=== PATIENT | female | born 1950 | race Caucasian/White ===

== ENCOUNTER 2016-06-14 16:02 | Emergency (ER) | payer BC ==
[2016-06-14] MEDS ORDERED: HYDROcod/ACETAM 5/325 MG TABLET PO STA (18:11)
[2016-06-14] MEDS ORDERED: HYDROcod/ACETAM 5/325 MG TABLET ONE (18:13)
== END 2016-06-14 18:43 | disposition home or self-care (01) ==
DX: S82.044A Nondisplaced comminuted fracture of right patella, initial encounter for closed fracture (principal); S60.519A Abrasion of unspecified hand, initial encounter; W01.0XXA Fall on same level from slipping, tripping and stumbling without subsequent striking against object, initial encounter; Y92.007 Garden or yard of unspecified non-institutional (private) residence as the place of occurrence of the external cause
CPT/HCPCS: 73564; 99283; A9270

== ENCOUNTER 2016-07-09 15:01 | Outpatient (CLI) | payer BC | END 2016-07-09 15:02 | disposition home or self-care (01) | DX: S82.041D Displaced comminuted fracture of right patella, subsequent encounter for closed fracture with routine healing (principal) ==

== ENCOUNTER 2017-11-25 14:40 | Outpatient (CLI) | payer MEDICARE, OTHER ==
--- NOTE | 2017-11-27 14:24 | DEXA Report ---
Reason: OSTEOPORSIS Procedure Date: 11/25/2017 Accession Number: [id number] / [id number] Procedure: DEX - Dexa Spine and/or Hip CPT Code: FULL RESULT: EXAM: Dexa Spine and/or Hip DATE: 11/25/2017 3:20 PM CLINICAL HISTORY: OSTEOPORSIS TECHNIQUE: Dual energy x-ray absorptiometry (DXA) was performed on a [employer] System. Regions measured are the AP Spine, femoral neck, and if needed forearm. COMPARISON: None. In accordance with the International Society for Clinical Densitometry (ISCD) guidelines, data from previous exams may be reanalyzed using current recommendations and techniques. This is done to allow a more accurate basis for comparison with the current study. FINDINGS: The data for the lumbar spine is as follows: BMD (g/cm/cm) T-SCORE Z-SCORE REGION L1 0.649 -4.0 -2.6 L2 0.973 -1.9 -0.5 L3 0.962 -2.0 -0.6 L4 0.809 -3.3 -1.8 TOTAL 0.851 -2.7 -1.3 NOTE: All evaluable vertebrae are used for classification The data for the hip is as follows: BMD (g/cm/cm) T-SCORE Z-SCORE REGION Neck 0.613 -3.1 -1.7 TOTAL 0.564 -3.5 -2.4 IMPRESSION: THE WHO CLASSIFICATION BASED ON THE INTERNATIONAL REFERENCE STANDARD IS OSTEOPOROSIS. THE FRACTURE RISK IS HIGH. RECOMMENDATION: Patients with diagnosis of osteoporosis or osteopenia should have regular bone mineral density assessment. For those eligible for Medicare, routine testing is allowed once every 2 years. Testing frequency can be increased for patients who have rapidly progressing disease or for those who are receiving medical therapy to restore bone mass. COMMENT: World Health Organization (WHO) definitions for osteoporosis and osteopenia: NORMAL BMD: T-score at -1.0 or higher, fracture risk is low OSTEOPENIA BMD: T-score between -1.0 and -2.5, fracture risk is increased. OSTEOPOROSIS BMD: T-score at -2.5 or lower, fracture risk is high. National Osteoporosis Foundation recommends: 1. Obtain adequate dietary calcium (at least 1200 mg per day) and vitamin D (400-800 international units per day). 2. Participate, as appropriate, in regular weightbearing and muscle-strengthening exercise. 3. Avoid tobacco use and reduce alcohol and caffeine intake. 4. For more detailed information see the website at www.NOF.org.
== END 2017-11-25 14:41 | disposition home or self-care (01) ==
LOC: DI 14:40
PROVIDERS: ATTEND Family Medicine
DX: M81.0 Age-related osteoporosis without current pathological fracture (principal)
CPT/HCPCS: 77080

== ENCOUNTER 2021-12-25 10:44 | Outpatient (CLI) | payer MEDICARE, OTHER ==
--- NOTE | 2021-12-25 11:12 | DEXA Report ---
PROCEDURE: Dexa Spine and/or Hip INDICATIONS: OSTEOPOROSIS TECHNIQUE: Dual energy x-ray absorptiometry (DXA) was performed on a [employer] System. Regions measur ed are the AP Spine, femoral neck, and if needed forearm. COMPARISON: 11/25/2017. FINDINGS: Lumbar Spine: Bone Mineral Density 0.845 g/cm/cm, T score -2.8, osteoporosis. There is significant interval increa se in bone mineral density. Left Hip: Bone Mineral Density 0.573 g/cm/cm, T score -3.5, osteoporosis, significant interval decrease in bon e mineral density. Left Femoral Neck: Bone Mineral Density 0.623 g/cm/cm, T score -3.0, osteoporosis. (T score greater or equal to -1.0: NORMAL) (T score from -1.1 to -2.4: OSTEOPENIA) (T score less than or equal to -2.5 to: OSTEOPOROSIS) Impression: Osteoporosis. There is significant interval decrease in bone mineral density at the left hip. There is significant interval increase in bone mineral density at the lumbar spine. Patients with diagnosis of osteoporosis or osteopenia should have regular bone mineral density assess ment. For those eligible for Medicare, routine testing is allowed once every 2 years. Testing frequ ency can be increased for patients who have rapidly progressing disease or for those who are receivin g medical therapy to restore bone mass. Reviewed by: Juventino Landry MD on 12/25/2021 10:11 AM [facility]ARD Approved by: Juventino Landry MD on 12/25/2021 10:11 AM HOWARD Station ID: [id number]
== END 2021-12-25 10:45 | disposition home or self-care (01) ==
LOC: DI 10:44
PROVIDERS: ATTEND Family Medicine
DX: M81.0 Age-related osteoporosis without current pathological fracture (principal); Z78.0 Asymptomatic menopausal state

== ENCOUNTER 2022-05-27 14:10 | Outpatient (CLI) | payer MEDICARE ==
--- NOTE | 2022-05-28 15:15 | Mammography Report ---
BILATERAL DIGITAL SCREENING MAMMOGRAM 3D/2D WITH EXAGGERATED CC: 05/27/2022 CLINICAL: Routine screening. Family history of breast cancer. Comparison is made to exams dated: 10/18/2013 mammogram, 08/26/2012 mammogram, and 08/06/2011 mammogram - [facility]. There are scattered areas of fibroglandular density in both breasts (category b / 25%-50% glandular t issue). No significant masses, calcifications, or other findings are seen in either breast. There has been no significant interval change. IMPRESSION: NEGATIVE There is no mammographic evidence of malignancy. A 1 year screening mammogram is recommended. Based on the Tyrer Cuzick model (a risk assessment model) the patients lifetime risk is 5.5% and her 10 year risk is 3.5%. According to the ACR, ACS, and NCCN guidelines, an annual breast MRI exam liz g with mammogram is recommended if the patients lifetime risk is 20% or greater. This exam was interpreted at Station ID: [id number]. NOTE: For mammograms, a report in lay terms will be sent to the patient. Approximately 15% of breast malignancies will not be visualized mammographically. In the management of a palpable breast mass, a negative mammogram must not discourage biopsy of a clinically suspicious lesion. Electronically Signed By: Isadora bray/reva:05/27/2022 16:54:16 letter sent: No_Letter ACR BI-RADS Category 1: Negative 3341F PARENCHYMAL PATTERN: (A) - The breast(s) demonstrate(s) scattered fibroglandular densities. BI-RADS CATEGORY: (1) - 1 Mammogram [id number] 1 year screening LATERALITY: (B)
== END 2022-05-27 14:11 | disposition home or self-care (01) ==
LOC: DI.S 14:10
PROVIDERS: ATTEND Family Medicine
DX: Z12.31 Encounter for screening mammogram for malignant neoplasm of breast (principal); Z80.3 Family history of malignant neoplasm of breast

== ENCOUNTER 2022-06-17 08:35 | Outpatient (CLI) | payer MEDICARE ==
[2022-06-17 15:21] LABS: BASOPHILS % (AUTO) 0.4 %; EOSINOPHILS # (AUTO) 0.1 10^3/uL (0.0-0.7); HCT - HEMATOCRIT 39.1 % (37.0-47.0); HGB - HEMOGLOBIN 12.4 g/dL (12.0-16.0); LYMPHOCYTES # (AUTO) 1.8 10^3/uL (1.5-3.5); LYMPHOCYTES % (AUTO) 33.1 %; MEAN CORPUSCULAR HEMOGLOBIN 30.1 pg (27.0-31.0); MEAN CORPUSCULAR HGB CONC 31.7 g/dL (32.0-36.0); MEAN CORPUSCULAR VOLUME 94.9 fL (81.0-99.0); MEAN PLATELET VOLUME 10.5 fL (7.9-10.8); MONOCYTES # (AUTO) 0.4 10^3/uL (0.0-1.0); MONOCYTES % (AUTO) 6.7 %; NEUTROPHILS # (AUTO) 3.1 10^3/uL (1.5-6.6); NEUTROPHILS % (AUTO) 57.6 %; PLT - PLATELET COUNT 236 10^3/uL (130-450); RED BLOOD COUNT 4.12 10^6/uL (4.20-5.40); WHITE BLOOD COUNT 5.4 x10^3/uL (4.8-10.8)
[2022-06-17 15:54] LABS: ALBUMIN 3.8 g/dL (3.2-5.5); ALBUMIN/GLOBULIN RATIO 1.4 (1.0-2.2); ALKALINE PHOSPHATASE 72 IU/L (42-121); ALT ALANINE AMINOTRANSFERASE 22 IU/L (10-60); AST ASPARTATE AMINOTRANSFERASE 25 IU/L (10-42); BILIRUBIN,TOTAL 0.6 mg/dL (0.2-1.0); BUN - BLOOD UREA NITROGEN 18 mg/dL (6-20); CALCIUM 9.5 mg/dL (8.5-10.3); CARBON DIOXIDE - CO2 29 mmol/L (21-32); CHLORIDE 103 mmol/L (101-111); CREATININE 0.7 mg/dL (0.4-1.0); GFR - MDRD 83 (>89); GLUCOSE 112 mg/dL (70-100); POTASSIUM 4.5 mmol/L (3.5-5.0); SODIUM 137 mmol/L (135-145); TOTAL PROTEIN 6.5 g/dL (6.7-8.2)
[2022-06-17 16:04] LABS: CRP HIGH SENSITIVITY < 0.5 mg/L
[2022-06-17 16:42] LABS: THYROID STIMULATING HORMONE 2.02 uIU/mL (0.34-5.60)
[2022-06-17 16:44] LABS: FREE T3 3.38 pg/mL (2.5-3.9); FREE T4 (FREE THYROXINE) 0.87 ng/dL (0.58-1.64)
[2022-06-17 16:49] LABS: FERRITIN 54.6 ng/mL (11.0-306.8)
[2022-06-17 20:48] LABS: ESTIMATED AVERAGE GLUCOSE 123 mg/dL (70-100); HEMOGLOBIN A1c% 5.9 % (4.27-6.07)
== END 2022-06-17 08:36 | disposition home or self-care (01) ==
LOC: LAB.S 08:35
PROVIDERS: ATTEND Family Medicine
DX: I10 Essential (primary) hypertension (principal); E78.5 Hyperlipidemia, unspecified; R73.09 Other abnormal glucose; E03.9 Hypothyroidism, unspecified; E55.9 Vitamin D deficiency, unspecified; R53.83 Other fatigue
CPT/HCPCS: 36415; 80053; 82306; 82626; 82728; 83036; 83090; 84439; 84443; 84480; 84481; 84482; 85025; 86141

== ENCOUNTER 2022-09-17 11:32 | Outpatient (CLI) | payer MEDICARE ==
--- NOTE | 2022-09-17 11:52 | XRAY Report ---
PROCEDURE: Hip w/Pelvis 2-3V RT INDICATIONS: RIGHT HIP PAIN TECHNIQUE: AP pelvis with lateral view(s) of the right hip(s). COMPARISON: None. FINDINGS: Bones: No fractures or dislocations. No suspicious bony lesions. Moderate bilateral hip arthritic change. Degenerative changes are present within the lower lumbar spine. No erosions. Soft tissues: No suspicious soft tissue calcifications or masses. IMPRESSION: Bilateral hip arthritis. Reviewed by: Felicia Ahuja MD on 09/17/2022 11:50 AM PDT Approved by: Felicia Ahuja MD on 09/17/2022 11:50 AM PDT Station ID: [id number]
== END 2022-09-17 11:33 | disposition home or self-care (01) ==
LOC: DI.S 11:32
PROVIDERS: ATTEND Family Medicine
DX: M16.0 Bilateral primary osteoarthritis of hip (principal)